=== PATIENT | male | born 1940 | race Caucasian/White ===

== ENCOUNTER → 2024-12-16 10:51 | Outpatient (CLI) | payer OTHER, SELFPAY ==
--- NOTE | 2024-12-16 10:55 | DI.US.S_ITS ---
PROCEDURE: US ARTERIAL DUPLEX LE RT INDICATIONS: COLD RIGHT FOOT TECHNIQUE: Color and pulse Doppler interrogation was performed of the right lower extremity arterial system, with image documentation. COMPARISON: None. FINDINGS: Common femoral artery: 70 cm/sec, with triphasic flow. Deep femoral artery: 78 cm/sec, with triphasic flow. Proximal superficial femoral artery: 73 cm/sec, with triphasic flow. Mid superficial femoral artery: 66 cm/sec, with triphasic flow. Distal superficial femoral artery: 47 cm/sec, with triphasic flow. Popliteal artery: 47 cm/sec, with triphasic flow. Posterior tibial artery: 48 cm/sec, with biphasic flow. Anterior tibial artery/dorsalis pedis: 59 cm/sec, with biphasic flow. [place]-scale imaging description: Minimal degree of plaque throughout the right lower extremity arterial system. IMPRESSION: No hemodynamically significant stenosis involving right lower extremity arterial system. Dictated by: Genaro Rodriguez M.D. on 12/16/2024 at 15:26 Approved by: Genaro Rodriguez M.D. on 12/16/2024 at 16:07
== END ==
LOC: US 10:53
PROVIDERS: Referring Provider Podiatrist; Visit Provider Podiatrist
DX: R20.9 Unspecified disturbances of skin sensation (principal)
CPT/HCPCS: 93926

== ENCOUNTER → 2025-05-04 12:08 | Outpatient (CLI) | payer OTHER, SELFPAY ==
--- NOTE | 2025-05-04 12:10 | DI.RAD.S_ITS ---
PROCEDURE: XR DEXA AXIAL SKELETON INDICATIONS: Ankylosing spondylitis COMPARISON: None. FINDINGS: Lumbar Spine: Bone mineral density 1.234 g/cm2, T score 1.7. Left Femoral Neck: Bone mineral density 0.664 g/cm2, T score -1.7. Left Hip: Bone mineral density 0.878 g/cm2, T score -0.5. Fracture Risk Calculation (when applicable): 10-year fracture risk of a major osteoporotic fracture 13 percent and of a hip fracture 4.9 percent. (T score greater or equal to -1.0 to: NORMAL) (T score from -1.1 to -2.4: OSTEOPENIA) (T score less than or equal to -2.5: OSTEOPOROSIS) IMPRESSION: Low bone mineral density (osteopenia) by WHO classification. Follow-up guidelines as follows: Osteoporosis: Consider a repeat DEXA and Vertebral Fracture Assessment (VFA) exam in 2 years or sooner if medically necessary, to reassess this patient's status. Osteopenia: Consider a repeat DEXA in 2-3 years to reassess this patient's status, or if there is a new clinical indication. Normal: Consider a repeat DEXA in 5 years or sooner, or if there is a new clinical indication. All treatment decisions require clinical judgment and consideration of individual patient factors, including patient preferences, comorbidities, previous drug use, risk factors not captured in the FRAX model (e.g., frailty, falls, vitamin D deficiency, increased bone turnover, interval significant decline in bone density ) and possible under- or over-estimation of fracture risk by FRAX. In addition, the NOF Guide recommends that FDA-approved medical therapies be considered in postmenopausal women and men age >= 50 years with a: * Hip or vertebral (clinical or morphometric) fracture * T-score of <=-2.5 at the spine or hip * Ten-year fracture probability by FRAX of >= 3% for hip fracture or >=20% for major osteoporotic fracture. Dictated by: Doe Chawla M.D. on 05/04/2025 at 16:04 Approved by: Doe Chawla M.D. on 05/04/2025 at 16:08
== END ==
LOC: RAD 12:09
PROVIDERS: Referring Provider Family Medicine; Visit Provider Family Medicine
DX: M45.9 Ankylosing spondylitis of unspecified sites in spine (principal); M85.852 Other specified disorders of bone density and structure, left thigh
CPT/HCPCS: 77080